=== PATIENT | male | born 1940 ===

== ENCOUNTER → 2017-07-17 | Emergency (ER) | payer OTHER ==
[~2017-07-17] VITALS: Ht 152.4 cm; Wt 64.9 kg
== END | disposition home or self-care (01) ==
LOC: ER 12:07 → CPU-OBS 12:32 → ER 12:32
DX: R07.89 Other chest pain (principal)

== ENCOUNTER 2018-01-23 10:46 | Emergency (ER) | payer OTHER ==
[~2018-01-23] VITALS: Ht 165.1 cm; Wt 68.0 kg
[2018-01-23] MEDS ORDERED: ENALAPRIL MALEAT5 MG (11:06)
== END 2018-01-23 13:49 | disposition home or self-care (01) ==
LOC: ER 10:46
DX: B00.89 Other herpesviral infection (principal)

== ENCOUNTER 2018-10-09 11:17 | Emergency (ER) | payer OTHER ==
[~2018-10-09] VITALS: Ht 157.5 cm; Wt 69.9 kg
[~2018-10-09 11:17] MED LIST: ENALAPRIL MALEAT5 MG
[2018-10-09] MEDS ORDERED: ASA-EC81 MG PO (11:34)
== END 2018-10-09 16:11 | disposition home or self-care (01) ==
LOC: ER 11:17
DX: M75.81 Other shoulder lesions, right shoulder (principal); M25.511 Pain in right shoulder